=== PATIENT | female | born 1955 | race Two or more races ===

== ENCOUNTER 2023-10-29 17:16 | Emergency (ER) | payer OTHER ==
[~2023-10-29] VITALS: Ht 162.6 cm; Wt 54.4 kg
[2023-10-29] MEDS ORDERED: PREGABALIN300 MG PO (18:38)
[2023-10-29] MEDS ORDERED: MECLIZINE HCL 12.5 MG TABLET PO STA (20:22)
[2023-10-29] MEDS ORDERED: MECLIZINE HCL12.5 MG PO (20:32)
== END 2023-10-29 20:46 | disposition home or self-care (01) ==
LOC: ER 17:16
DX: R42 Dizziness and giddiness (principal)